=== PATIENT | male | born 1935 | race Caucasian/White ===

== ENCOUNTER 2017-02-23 19:44 | Emergency (ER) | payer MEDICARE, SELFPAY ==
[~2017-02-23] VITALS: Ht 175.3 cm; Wt 90.7 kg
[~2017-02-23 19:44] MED LIST changes: -CEPH500 PO; -CIPR500 PO; -FINA5 PO; -INSU100I6; -LIRA0.6P; -PIOG15; -Ultram50 MG PO
== END 2017-02-23 20:55 | disposition home or self-care (01) ==
LOC: ER 19:44
DX: T83.031A Leakage of indwelling urethral catheter, initial encounter (principal); I10 Essential (primary) hypertension; E11.9 Type 2 diabetes mellitus without complications; Z87.891 Personal history of nicotine dependence
CPT/HCPCS: 99282

== ENCOUNTER → 2017-02-23 | Outpatient (CLI) | payer MEDICARE, SELFPAY ==
[~2017-02-23] MED LIST: ALLO100 PO; AMLO10 PO; AMLO5 PO; Aspir-Low81 MG PO; CEPH500 PO; CIPR500 PO; CYCL10 PO; Cipro500 MG PO; DIPATR PO; DOCU100 PO; DOXA4 PO; FINA5 PO; FURO20 PO; FURO40 PO; Flomax0.4 MG PO; GLIM2 PO; GLYMET5 PO; Glucophage1000 MG PO; INSU100I6; INSUASPI SC; INSULANPEN SC; LEVEMIR FL100 UNIT/1 SC; LIRA0.6P; LISI20 PO; MECL25 PO; METF500 PO; METO100ER PO; METO50 PO; Novolog Fl100 UNIT/1 SC; ONDA4ODT MM; PIOG15; POTCHL20ER PO; Pravachol40 MG PO; Roxicodone5 MG PO; SPIR25 PO; Ultram50 MG PO; Zestril40 MG
[2017-02-23 16:23] LABS: Appearance, Urine Hazy (Clear); Bilirubin, Urine Neg (Neg); Blood, Urine 5+ (Neg); Color, Urine Yellow (P-Yellow); Glucose Qualitative, Urine 4+ (Neg); Ketones, Urine Neg (Neg); Leukocyte Esterase, Urine 3+ (Neg); Nitrite, Urine Neg (Neg); Protein, Urine 2+ (Neg); Urobilinogen, Urine NORM (Normal); pH, Urine 6.5 (5.0-8.0)
[2017-02-23 17:57] LABS: Bacteria Many /hpf; Red Blood Cells, Urine 25-50 /hpf (0-2); Squamous Epithelial Cells Rare /hpf (Few); White Blood Cells, Urine 25-50 /hpf (0-5)
[2017-02-23 17:58] LABS: Yeast/Fungi Urine Few /hpf
== END ==
LOC: LAB 14:50
PROVIDERS: Nurse Practitioner Family
DX: R31.9 Hematuria, unspecified (principal)
CPT/HCPCS: 81001; 87077; 87086; 87186

== ENCOUNTER → 2017-03-10 | Outpatient (CLI) | payer MEDICARE, SELFPAY ==
[~2017-03-10] MED LIST changes: +CEPH500 PO; +CIPR500 PO; +FINA5 PO; +INSU100I6; +LIRA0.6P; +PIOG15; +Ultram50 MG PO
[2017-03-10 16:34] LABS: Source, Urine Catheter
[2017-03-10 18:21] LABS: Bilirubin, Urine Neg (Neg); Blood, Urine 4+ (Neg); Glucose Qualitative, Urine Neg (Neg); Ketones, Urine Neg (Neg); Leukocyte Esterase, Urine 1+ (Neg); Nitrite, Urine Neg (Neg); Protein, Urine Neg (Neg); Specific Gravity, Urine 1.025 (1.003-1.022); Urobilinogen, Urine NORM (Normal)
[2017-03-10 18:37] LABS: Appearance, Urine Clear (Clear); Color, Urine Pale Yellow (P-Yellow)
[2017-03-10 18:38] LABS: Bacteria Mod /hpf; Red Blood Cells, Urine 0-2 /hpf (0-2); Squamous Epithelial Cells Not Seen /hpf (Few)
== END ==
LOC: LAB 16:32
PROVIDERS: Registered Nurse
DX: N39.0 Urinary tract infection, site not specified (principal); R31.9 Hematuria, unspecified
CPT/HCPCS: 81001; 87086

== ENCOUNTER 2017-03-18 02:59 | Emergency (ER) | payer MEDICARE, SELFPAY ==
[~2017-03-18] VITALS: Ht 175.3 cm; Wt 95.2 kg
[~2017-03-18 02:59] MED LIST changes: -CEPH500 PO; -CIPR500 PO; -FINA5 PO; -INSU100I6; -LIRA0.6P; -PIOG15; -Ultram50 MG PO
[2017-03-18 05:08] LABS: Source, Urine Catheter
[2017-03-18 05:10] LABS: Bilirubin, Urine Neg (Neg); Blood, Urine 2+ (Neg); Glucose Qualitative, Urine 4+ (Neg); Ketones, Urine 1+ (Neg); Leukocyte Esterase, Urine 3+ (Neg); Nitrite, Urine Neg (Neg); Protein, Urine 2+ (Neg); Urobilinogen, Urine NORM (Normal)
[2017-03-18 05:17] LABS: Color, Urine Yellow (P-Yellow)
[2017-03-18 05:18] LABS: Appearance, Urine Cloudy (Clear)
[2017-03-18 05:19] LABS: White Blood Cells, Urine TNTC /hpf (0-5)
[2017-03-18 05:21] LABS: Bacteria Not Seen /hpf; Squamous Epithelial Cells Not Seen /hpf (Few)
[2017-03-18] MEDS ORDERED: CIPR500 PO (06:34)
== END 2017-03-18 06:40 | disposition left against medical advice (07) ==
LOC: ER 02:59
PROVIDERS: Emergency Medicine
DX: R33.9 Retention of urine, unspecified (principal); N39.0 Urinary tract infection, site not specified; I10 Essential (primary) hypertension; E11.9 Type 2 diabetes mellitus without complications; Z88.0 Allergy status to penicillin; Z91.018 Allergy to other foods; Z79.84 Long term (current) use of oral hypoglycemic drugs; Z87.891 Personal history of nicotine dependence
CPT/HCPCS: 51702; 81001; 87086; 99283

== ENCOUNTER 2017-04-03 16:02 | Emergency (ER) | payer MEDICARE, SELFPAY ==
[~2017-04-03] VITALS: Ht 172.7 cm; Wt 91.0 kg
[~2017-04-03 16:02] MED LIST changes: +CIPR500 PO
== END 2017-04-03 16:45 | disposition home or self-care (01) ==
LOC: ER 16:02
DX: T83.031A Leakage of indwelling urethral catheter, initial encounter (principal); Z88.8 Allergy status to other drugs, medicaments and biological substances; Z88.0 Allergy status to penicillin; Z91.02 Food additives allergy status; Z79.899 Other long term (current) drug therapy; Z79.84 Long term (current) use of oral hypoglycemic drugs; Z79.2 Long term (current) use of antibiotics; I10 Essential (primary) hypertension; E11.9 Type 2 diabetes mellitus without complications; Z87.891 Personal history of nicotine dependence
CPT/HCPCS: 99282

== ENCOUNTER 2017-05-06 12:20 | Emergency (ER) | payer MEDICARE, SELFPAY ==
[~2017-05-06] VITALS: Ht 175.3 cm; Wt 95.2 kg
== END 2017-05-06 13:40 | disposition home or self-care (01) ==
LOC: ER 12:20
DX: Z43.6 Encounter for attention to other artificial openings of urinary tract (principal); I10 Essential (primary) hypertension; E11.9 Type 2 diabetes mellitus without complications; Z87.891 Personal history of nicotine dependence; Z88.0 Allergy status to penicillin; Z88.7 Allergy status to serum and vaccine; Z91.018 Allergy to other foods; Z79.84 Long term (current) use of oral hypoglycemic drugs; Z79.899 Other long term (current) drug therapy
CPT/HCPCS: 99282

== ENCOUNTER → 2017-08-01 | Outpatient (CLI) | payer MEDICARE ==
[~2017-08-01] MED LIST changes: +CEPH500 PO; +FINA5 PO; +INSU100I6; +LIRA0.6P; +PIOG15; +Ultram50 MG PO
== END ==
LOC: LAB 16:30 → LAB SHORT 16:30
DX: R10.11 Right upper quadrant pain (principal); N28.89 Other specified disorders of kidney and ureter
CPT/HCPCS: 87077; 87086; 87186

== ENCOUNTER 2017-08-04 14:43 | Emergency (ER) | payer MEDICARE ==
[~2017-08-04] VITALS: Ht 170.2 cm; Wt 108.9 kg
[~2017-08-04 14:43] MED LIST changes: -CEPH500 PO; -FINA5 PO; -INSU100I6; -LIRA0.6P; -PIOG15; -Ultram50 MG PO
[2017-08-04 15:32] LABS: BASOPHILS ABSOLUTE AUTO 0.04 K/mm3 (0.00-0.23); BASOPHILS PERCENT AUTO 1 % (0-2); EOSINOPHILS ABSOLUTE AUTO 0.15 K/mm3 (0.00-0.68); EOSINOPHILS PERCENT AUTO 2 % (0-6); Hematocrit 44.2 % (37.0-53.0); Hemoglobin 14.9 g/dL (13.5-17.5); IMMATURE GRAN ABSOLUTE AUTO 0.02 K/mm3 (0.00-0.10); IMMATURE GRAN PERCENT AUTO 0 % (0-1); LYMPHOCYTES ABSOLUTE AUTO 2.06 K/mm3 (0.84-5.20); LYMPHOCYTES PERCENT AUTO 29 % (21-46); MONOCYTES ABSOLUTE AUTO 0.43 K/mm3 (0.16-1.47); MONOCYTES PERCENT AUTO 6 % (4-13); Mean Corpuscular HGB 28.9 pg (26.0-34.0); Mean Corpuscular HGB Conc 33.7 g/dL (31.5-36.5); Mean Corpuscular Volume 86 fL (80-100); Mean Platelet Volume 9.3 fL (9.1-12.4); NEUTROPHILS ABSOLUTE AUTO 4.37 K/mm3 (1.96-9.15); NEUTROPHILS PERCENT AUTO 62 % (41-73); Platelet Count 196 K/mm3 (150-400); RDW Coefficient Variation 13.2 % (11.7-14.2); RDW Standard Deviation 41.1 fL (35.1-46.3); Red Blood Cell Count 5.15 M/mm3 (4.30-5.90); White Blood Cell Count 7.07 K/mm3 (4.00-11.30)
[2017-08-04 15:48] LABS: Alanine Aminotransfer (ALT/SGP 27 U/L (12-78); Albumin, Blood 3.7 g/dL (3.4-5.0); Albumin/Globulin Ratio 1.2 (0.8-1.8); Alk Phos 86 U/L (50-136); Anion Gap 7 mmol/L (6-16); Aspartate Aminotrans (AST/SGOT 25 U/L (12-37); Bilirubin, Total 0.8 mg/dL (0.1-1.0); Blood Urea Nitrogen 13 mg/dL (8-24); Bun/Creatinine Ratio 12.7 (12.0-20.0); CO2, Blood 29 mmol/L (21-32); Calcium, Blood 8.9 mg/dL (8.5-10.1); Chloride, Blood 105 mmol/L (98-108); Creatinine, Blood 1.02 mg/dL (0.60-1.20); Glomerular Filtration Rate >60 (60-); Glucose, Blood 212 mg/dL (70-99); Potassium, Blood 4.1 mmol/L (3.5-5.5); Sodium, Blood 141 mmol/L (136-145); Total Protein, Blood 6.7 g/dL (6.4-8.2)
[2017-08-04 17:22] LABS: Source, Urine Clean Catch
[2017-08-04 17:29] LABS: Appearance, Urine Clear (Clear); Bilirubin, Urine Neg (Neg); Blood, Urine Neg (Neg); Color, Urine Yellow (P-Yellow); Glucose Qualitative, Urine Neg (Neg); Ketones, Urine 1+ (Neg); Leukocyte Esterase, Urine 2+ (Neg); Nitrite, Urine Neg (Neg); Protein, Urine 3+ (Neg); Urobilinogen, Urine NORM (Normal)
[2017-08-04 17:37] LABS: Bacteria Few /hpf; Red Blood Cells, Urine 0-2 /hpf (0-2); Squamous Epithelial Cells Not Seen /hpf (Few)
[2017-08-04] MEDS ORDERED: PIOG15 (17:38)
[2017-08-04] MEDS ORDERED: LIRA0.6P (17:39)
[2017-08-04] MEDS ORDERED: INSU100I6 (17:39)
[2017-08-04] MEDS ORDERED: FINA5 PO (17:40)
[2017-08-04] MEDS ORDERED: CEPH500 PO (19:16)
[2017-08-04] MEDS ORDERED: Ultram50 MG PO (19:16)
== END 2017-08-04 19:28 | disposition home or self-care (01) ==
LOC: ER 14:43
PROVIDERS: Internal Medicine
DX: N30.90 Cystitis, unspecified without hematuria (principal); K44.9 Diaphragmatic hernia without obstruction or gangrene; I10 Essential (primary) hypertension; E11.9 Type 2 diabetes mellitus without complications; Z87.891 Personal history of nicotine dependence; Z88.0 Allergy status to penicillin; Z88.8 Allergy status to other drugs, medicaments and biological substances; Z91.02 Food additives allergy status; Z79.899 Other long term (current) drug therapy; Z79.84 Long term (current) use of oral hypoglycemic drugs; Z79.4 Long term (current) use of insulin
CPT/HCPCS: 36415; 74177; 80053; 81001; 83690; 85025; 87086; 99284; Q9967

== ENCOUNTER 2018-06-08 10:51 | Day surgery (SDC) | payer MEDICARE ==
[~2018-06-08] VITALS: Ht 172.7 cm; Wt 94.3 kg
[~2018-06-08 10:51] MED LIST changes: +CEPH500 PO; +FINA5 PO; +GLIP10ER PO; +INSU100I6; +LIRA0.6P SC; +METO50ER PO; +OXYB5ER PO; +PIOG15 PO; +Ultram50 MG PO
--- NOTE | 2018-06-08 11:52 | NUR ---
PT QUESTIONS OFTEN FOR EACH ACTION TAKEN. ORIGINALLY REFUSES TO ANSWER QUESTIONS TO RECONCILE MEDICAL HISTORY. ANSWERS PROVIDED ARE CONTINUOUS NEGATIVE RESPONSES, EVEN BEFORE QUESTION IS FULLY ENUNCIATED. PT EXHIBITS GROWING DISPLEASURE WITH QUESTIONS AND TONE OF VOICE BECOMES LOUDER AND AGGRESSIVE. REFUSES TO ANSWER FURTHER QUESTIONS. REMOVES BP CUFF FROM R ARM DURING BASELINE TESTING AFTER COMPLAINING IT HURT COMPLIANCE VARIES THROUGHOUT PREP TIME. JASEN WILLIAMSON RN IN ATTENDANCE.
--- NOTE | 2018-06-08 16:33 | NUR ---
PATIENT ARRIVED IN UNIT ROOM 14 AT 16:22 AFTER INTERVENTION FROM [facility] [place], BEDSIDE REPORT RECEIVED FROM JAMES CORREARN,[facility], HAS A MYNX CLOSURE ON RIGHT GROIN, PUNCTURE SITE SHOWS NO SIGNS OF BLEEDING, NO HEMATOMA NOTED, NO HARDNESS PALPATED, ANGIOSEAL ON L GROIN SHOWS NO SIGNS OF BLEEDING, SOFT ON PALPATION, NO HEMATOMA NOTED, PATIENT HAS MEJIA CATHETER IN PLACE, 14 FR COUDE, BLOODY URINE NOTED, PATIENT PLACED INTO SLIGHT REVERSE TRENDELENBURG AND ICE CHIPS GIVEN, NO PROBLEM SWALLOWING, DAUGHTER AT BEDSIDE, AWAITING DR. CONNOLLY TO SPEAK WITH DAUGHTER AND WRITE ORDERS, PATIENT WAS PLACED ON MONITOR AND BP'S SET TO EVERY 15 MINUTES, ORIENTED TO NEW ENVIRONMENT, AND ROOM, CALL LIGHT IN REACH AND EXPLAINED, WILL CONTINUE TO MONITOR.
--- NOTE | 2018-06-08 16:40 | NUR ---
POST PVI 14 FR COUDE CATHETER PLACED, MILD RESISTANCE DURING INSERTION. RED TINGED URINE DRAINING INTO MEJIA BAG WITH SMALL CLOTS. PT ALSO HAS BLEEDING FROM AROUND THE TUBE IN [place], PROVIDER INFORMED, PT WAS GIVEN PROTAMINE IVP. STAT LOCK SECURED TO PT LEFT THIGH. BAG DRAINING TO GRAVITY.
--- NOTE | 2018-06-08 17:46 | NUR ---
SHIFT SUMMARY NOTE: PATIENT ARRIVED TO ICU ROOM 14 VIA ICU BED AFTER INTERVENTION, BEDSIDE REPORT RECEIVED FROM OTONIEL CHANG RN, ASSUMED CARE, PATIENT ANGRY AND BRIEFLY COMBATIVE, TRYING TO HIT NURSES DURING ASSESSMENT OF BILATERAL GROIN SITES, BUT WAS REORIENTED, DAUGHTER AT BEDSIDE, RIGHT GROIN SITE COVERED WITH CHG TEGADERM, SITE INTACT, NO S/S OF BLEEDING, HEMATOMA, NONTENDER ON PALPATION, MYNX CLOSING DEVISE IN PLACE, LEFT GROIN SITE COVERED WITH CHG TEGADERM, PUNCTURE SITE SHOWS NO S/S OF BLEEDING, NO HEMATOMA, NONTENDER ON PALPATION, PATIENT IS AFEBRILE, DENIES PAIN AT THIS TIME, MEJIA CATHETER IN PLACE, URINE IS RED, D/T PATIENT ON BLOOD THINNERS AND TRAUMA ON INSERTION, MEJIA IS A 14 FR COUDE, PATIENT HAS HISTORY OF ENLARGED PROSTATE, LUNG SOUNDS CLEAR, NSR/ST, BLOOD PRESSURES BETWEEN 140'S TO 160'S, ON RA O2 SATURATION IN LOW TO MID 90'S, PLACED IN REVERSED TRENDELENBURG, ABLE TO SIP ON WATER AND ICE CHIPS, DR. CONNOLLY IN TO SEE PATIENT AND NOTIFY DAUGHTER OF FINDINGS, PULSES IN RIGHT LEG ARE PALPABLE, LEFT LEG DOPPLER USED, PATIENT C/0 COLD FEET, TWO WARM BLANKETS APPLIED, DIET ORDERED, HAD JELLO AND NO PROBLEM SWALLOWING, CALL LIGHT IN REACH, WILL CONTINUE TO MONITOR.
--- NOTE | 2018-06-08 20:43 | NUR ---
ASSUMED CARE PT IS ALERT AND ORIENTED CHATTING WITH DAUGHTER AND FRIEND. EXTREMETIES ARE WARM AND SHOW GOOD CAP REFILL. PULSES ARE +2. FEMORAL SITES ARE SOFT, NONTENDER, AND NO SIGNS OF BLEEDING.
[2018-06-08] MEDS ORDERED: LOSARTAN POTASS50 MG PO (20:53)
[2018-06-08] MEDS ORDERED: DOCU100 PO (20:54)
[2018-06-08] MEDS ORDERED: Flonase 0.05% N16 GM INH (20:57)
[2018-06-08] MEDS ORDERED: ALLERCLEAR10 MG PO (20:59)
--- NOTE | 2018-06-09 06:46 | NUR ---
SHIFT SUMMARY PT IS FULLY ALERT AND ORIENTED X 4. OVERNIGHT PT ATTEMPTED TO SELF AMBULATE TO CHAIR WITHOUT TELLING NURSES, BUT WAS NOTICED AND STOPPED; PT WAS DIAPHORETIC, AND HYPERTENSIVE SBP>215. AFTER SITTING DOWN AND RESTING BLOOD PRESSURE WENT DOWN SBP ~155 NEAR BASELINE AND WAS NO LONGER DIAPHORETIC.
--- NOTE | 2018-06-09 07:30 | NUR ---
ASSUMED CARE: RECEIVED REPORT FROM NOC RN. PT AWAKE AND WATCHING TV UPON ENTERING ROOM. ASSESSED GROIN SITES BOTH APPEAR TO BE SOFT, NONTENDER AND NOT SIGNS OF BLEEDING NOTED. PIN POINT BLOOD NOTED AT INSERTION SITE. PT A/O X 4 ASKING QUESTIONS OF WHEN BREAKFAST WILL ARIVE. ASSESSED FOLY NO BLEEDING NOTED AROUND INSERTION SITE. NO ACUTE DISTRESS NOTED. WILL ASSESS FURTHER AND CONTINUE TO MONITOR. CALL LIGHT WITHIN REACH.
--- NOTE | 2018-06-09 08:18 | NUR ---
UPDATE: PT UP TO TOILET WITH STAND BY ASSIST FOR CORD MANAGEMENT. DC'D MEJIA AT THIS TIME. MEDS GIVEN AND BLOOD SUGAR ASSESSED. PT REFUSES TO STATE NAME AND . REPORT OF PENIS "STINGING" AFTER REMOVAL. EDUCATED PT TO INFORM RN WHEN PT IS ABLE TO URINATE. EDUCATED PT TO CALL ONCE TOILETING IS COMPLETE AND NOT TO GET UP WITHOUT STAFF IN THE ROOM TO ASSIST TO PREVENT FALLING. WILL CONTINUE TO MONTIOR AND ASSESS FURHTER.
--- NOTE | 2018-06-09 08:30 | NUR ---
BLEEDING: SMALL AMOUNT OF BLEEDING NOTED AFTER REMOVAL OF MEJIA CATHETER. SOME DRIPPING NOTED FROM TOILET TO BED. PT PROVIDED GAUZE. WILL MONITOR BLEEDING.
--- NOTE | 2018-06-09 09:06 | NUR ---
DAUGHTER: PT DAUGHTER ARIVES TO THE UNIT GIVEN AN UPDATE TO WHEN PT WILL BE DC'D. PT STATES STILL BLEEDING AND REQUESTS MORE GAUZE. BLEEDING IS NOTED TO HAVE REDUCED. WILL CONTINUE TO MONITOR.
--- NOTE | 2018-06-09 09:20 | NUR ---
DISCHARGE: ORDERS RECEIVED FOR DISCHARG, PAPERS DONE AND AWAITING PT URINATION TO INSURE NO RETENTION SINCE DC OF MEJIA.
--- NOTE | 2018-06-09 10:00 | NUR ---
UPDATE: ASKED PT IF HE COULD ATEMPT TO URINATE, PT REFUSES. PT STATES IF HE DOESN'T URINATE IN THE NEXT HOUR HE IS GETTING DRESSED AND LEAVING. EDUCATED PT ON THE RISK OF RETENTION. PT STATES "GET THIS THING OUT OF ME" REFERING TO HIS IV. EDUCATE PT OF NEED TO KEEP IN UNTIL PT IS LEAVING OUT THE DOOR INCASE OF EMERGENCY. PT BEGINS PULLING ON TAPE TO REMOVE HIMSELF, BUT STOPS AFTER EDUCATION.
--- NOTE | 2018-06-09 10:35 | NUR ---
NO URINATION: PT HAS NOT URINATED OF YET, PT STATES IF HE DOES NOT URINATE BY 1200 HE IS LEAVING. EDUCATED PT ON RISKS OF LEAVING AND POSSIBLE RETENTION. PT STATES "I DON'T CARE". WILL DISCUSS WITH UTILITY WORKER ROLLER SHOP PRIOR TO DISCHARGE IF PT DOES NOT URINATE.
--- NOTE | 2018-06-09 11:02 | NUR ---
PAIN: PT STATES PAIN IN PENIS AND ACROSS LOW BLADDER AREA IS NOT ANY BETTER. PT STATES HE IS ABOUT TO THROW UP D/T PAIN AND REQUESTS SOMETHING MORE FOR PAIN. PT NOTIFED OF NEED TO CALL THE DR FOR SOMETHING DIFFERENT.
[2018-06-09] MEDS ORDERED: Pyridium200 MG PO (11:57)
--- NOTE | 2018-06-09 12:00 | NUR ---
DR CONNOLLY: FRONT END ALIGNMENT SPECIALIST WAS ABLE TO REACH DR CONNOLLY AND INFORMED HIM OF THE SITUATION. RECEIVED ORDERS FOR LIDOCANE AND PYRIDIUM. STILL WANTS TO DISCHARGE WITH OR WITHOUT URINATING. DR AWARE OF INCREASED BLOOD PRESSURE AND PVC'S.
--- NOTE | 2018-06-09 12:04 | NUR ---
PHARMACY: ORDER FOR PYRIDIUM PERSCRIPTION CALLED TO PHARMACY AT THIS TIME.
--- NOTE | 2018-06-09 12:43 | NUR ---
UPDATE AND DISCHARGE PAPERWORK: PT GIVEN MEDS FOR PAIN IN BLADDER AND PENIS. PT BP IS NOTED TO BE ELIVATED, TOOK MANUAL BP AND WAS 240/105. PT STATES PAIN IN BLADDER AREA IS BETTER, BUT PENIS IS STILL "UNCOMFORTABLE". DISCHARGE EDUCATION DONE PT STATES UNDERSTANDING. PT PULLED OFF TELE, AND REMOVED IV. DRESSED READY TO GO, PT ADVISED AND EDUCATED TO RELAX FOR A FEW TO ATEMPT TO REDUCE BLOOD PRESSURE. EDUCATED PT TO MONITOR BP. WILL CONTINUE TO MONITOR PT UNTIL HE LEAVES THE BUILDING.
--- NOTE | 2018-06-09 13:05 | NUR ---
DISCHARGE PT DEPARTED WITH SISTER VIA WHEELCHAIR AT 1302. MANUAL BP IMMEDIATELY PRIOR TO DEPARTURE 178/80.
[2018-06-13] MEDS ORDERED: Bactrim Ds Tab1 EACH PO (09:01)
[2018-06-13] MEDS ORDERED: Miralax17 GM PO (09:01)
== END 2018-06-09 13:02 | disposition home or self-care (01) ==
LOC: MHTC 10:51 → ICUW 16:17 → MHTC 22:47
DX: E11.51 Type 2 diabetes mellitus with diabetic peripheral angiopathy without gangrene (principal); I70.201 Unspecified atherosclerosis of native arteries of extremities, right leg; I10 Essential (primary) hypertension; E78.5 Hyperlipidemia, unspecified; M10.9 Gout, unspecified; Z87.891 Personal history of nicotine dependence; Z88.0 Allergy status to penicillin; Z88.8 Allergy status to other drugs, medicaments and biological substances; Z91.018 Allergy to other foods; Z79.899 Other long term (current) drug therapy; Z79.4 Long term (current) use of insulin
CPT/HCPCS: 37224; 37229; 37232; 75625; 75710; 75716; 82947; 99152; 99153; C1725; C1760; C1769; C1885; C1887; C1894; C2623; J0360; J1644; J2250; J2720; J3010; J7030; Q9967

== ENCOUNTER 2019-01-16 09:47 | Observation (INO) | payer MEDICARE ==
[~2019-01-16] VITALS: Ht 172.7 cm; Wt 94.2 kg
[~2019-01-16 09:47] MED LIST changes: +ALLERCLEAR10 MG PO; +Bactrim Ds Tab1 EACH PO; +Flonase 0.05% N16 GM; +Flonase 0.05% N16 GM INH; +LACT10SY PO; +LOSA50 PO; +LOSARTAN POTASS50 MG PO; +Loratadine10 MG PO; +MIRALAX17 GM PO; +Miralax17 GM PO; +Pyridium200 MG PO
--- NOTE | 2019-01-16 17:05 | NUR ---
ARRIVED FROM MANAGER PET AT 1655. R DP AND PT PULSES FAINT BUT PALPABLE. INSTRUCTED PATIENT TO KEEP LLE ABSOLUTELY STILL AND FLAT FOR 3 HOURS, KEEP OXYGEN AND O2 SAT PROBE ON, AND TO USE CALL LIGHT IF HE NEEDED ANYTHING; HE REQUIRED MUCH REINFORCEMENT AND REDIRECTION. L GROIN SITE WITHOUT BLEEDING OR HEMATOMA WITH DRIED BLOOD DOWN NEAR SCROTUM. DENIES PAIN, N/V AT THIS TIME. SIDE RAILS UP X 3, BED ALARM ON.
--- NOTE | 2019-01-16 18:50 | NUR ---
PER PATIENT REQUEST, CALLED HIS DAUGHTER DORA, TRANSFERRED PHONE CALL TO PT ROOM.
--- NOTE | 2019-01-16 21:00 | NUR ---
ASSUMED CARE OF PT @1900, REPORT RCV'D FROM SHELBY DOSHI. PT TO BE DISCHARGED AT 1999 EXTENDED RECOVERY FOLLOWING INTERVENTIONAL RIGHT LEG ANGIOGRAM. PT ALERT AND ORIENTED TO SELF, SITUATION, DATE/YEAR. PT APPEARED AGITATED BUT REDIRECTABLE. PER DAYSHIFT NURSE PT'S FRIEND "GRACE" TO PICK PATIENT UP AND STAY WITH PATIENT OVERNIGHT. 1999: AT PRECISELY 1999 PT CALLED NURSE INTO ROOM INSISTING THAT HE WAS READY TO GET UP, GET DRESSED AND LEAVE. INFORMED PT THAT WE WERE PRINTING HIS DISCHARGE ORDERS/INFORMATION AND WAITING FOR HIS TRANSPORTATION TO ARRIVE AND THEN WE WOULD BE ABLE TO GET HIM OUT OF BED. PT BECAME INCREASINGLY AGITATED, CURSING AT STAFF, PULLING LINES/CORDS OFF, AND ATTEMPTING TO GET OUT OF BED. PT REMINDED THAT HE HAD JUST UNDERGONE AN PROCEDURE AND THAT HE NEEDED ASSISTANCE TO SAFELY AMBULATE. PT BEGAN SWINGING AND KICKING AT STAFF AND THEN QUICKLY BECAME DYSPNEIC, INCREASED OXYGEN NEEDS, AND HAD AUDITORY WHEEZES T/O. ATTEMPTED UNSUCCESSFULLY DR. CONNOLLY ON 4 OCCASIONS HE WAS INTERVENTIONAL DR, CALLED NURSING MATHEMATICAL PHYSICIST, AND THEN CONTACTED HOSPITALIST TO COME AND ASSESS AND POSSIBLY ADMIT PT. HOSPITALIST DEMETRI TO SEE PT, ADMITTED TO ICU OBS PATIENT FOR ACUTE RESPIRATORY FAILURE WITH HYPOXIA. PT RECOGNIZES NEED TO BE ADMITTED AND IS CURRENTLY COOPERATIVE WITH CARE STATING "I DON'T FEEL GOOD". PT REQUIRING 13-15L OXYMIZER TO MAINTAIN O2 SATS>90%. PT REFUSES TO WEAR PRESCRIBED CPAP. ORDER FOR LASIX AND INSERTION OF MEJIA, STAT CHEST XRAY AND EKG. PT'S FRIEND "GRACE" AT BEDSIDE, REPORTS PT IS "CONFUSED" AT BASELINE BUT THAT HE IS "NEVER COMBATIVE", FRIEND REPORTS CONCERN REGARDING PT RETURNING HOME PT HAS "60 STEEP STAIRS THAT HE HAS TO CLIMB TO GET HOME". WILL PUT IN SOCIAL SERVICE CONSULT. LEFT FEMORAL ACCESS SITE SOFT/NONTENDER, NO EVIDENCE OF BLEEDING, NO HEMATOMA. 2+ PITTING EDEMA BILATERAL LOWER EXTREMETIES, DOPPLER PULSES BLE. SEE FULL ADMISSION ASSESSMENT.
[2019-01-16 21:27] LABS: BASOPHILS ABSOLUTE AUTO 0.04 K/mm3 (0.00-0.23); BASOPHILS PERCENT AUTO 0 % (0-2); EOSINOPHILS ABSOLUTE AUTO 0.22 K/mm3 (0.00-0.68); EOSINOPHILS PERCENT AUTO 2 % (0-6); Hematocrit 47.3 % (37.0-53.0); IMMATURE GRAN ABSOLUTE AUTO 0.02 K/mm3 (0.00-0.10); IMMATURE GRAN PERCENT AUTO 0 % (0-1); LYMPHOCYTES ABSOLUTE AUTO 1.59 K/mm3 (0.84-5.20); LYMPHOCYTES PERCENT AUTO 15 % (21-46); MONOCYTES ABSOLUTE AUTO 0.68 K/mm3 (0.16-1.47); MONOCYTES PERCENT AUTO 7 % (4-13); Mean Corpuscular HGB 29.7 pg (26.0-34.0); Mean Corpuscular HGB Conc 31.7 g/dL (31.5-36.5); Mean Corpuscular Volume 94 fL (80-100); Mean Platelet Volume 9.6 fL (9.1-12.4); NEUTROPHILS ABSOLUTE AUTO 7.83 K/mm3 (1.96-9.15); NEUTROPHILS PERCENT AUTO 75 % (41-73); Platelet Count 188 K/mm3 (150-400); RDW Standard Deviation 48.1 fL (35.1-46.3); Red Blood Cell Count 5.05 M/mm3 (4.30-5.90); White Blood Cell Count 10.38 K/mm3 (4.00-11.30)
[2019-01-16 21:37] LABS: Source, Urine Catheter
[2019-01-16 21:44] LABS: Appearance, Urine Hazy (Clear); Bilirubin, Urine Neg (Neg); Blood, Urine 5+ (Neg); Color, Urine Amber (P-Yellow); Glucose Qualitative, Urine 1+ (Neg); Ketones, Urine 1+ (Neg); Leukocyte Esterase, Urine 1+ (Neg); Nitrite, Urine Neg (Neg); Protein, Urine 4+ (Neg); Urobilinogen, Urine NORM (Normal); pH, Urine 6.5 (5.0-8.0)
[2019-01-16 21:50] LABS: Red Blood Cells, Urine TNTC /hpf (0-2)
[2019-01-16 21:51] LABS: Bacteria Mod /hpf; Squamous Epithelial Cells Few /hpf (Few)
[2019-01-16 21:54] LABS: Alanine Aminotransfer (ALT/SGP 34 U/L (12-78); Albumin, Blood 3.6 g/dL (3.4-5.0); Albumin/Globulin Ratio 1.2 (0.8-1.8); Alk Phos 129 U/L (50-136); Anion Gap 8 mmol/L (6-16); Aspartate Aminotrans (AST/SGOT 22 U/L (12-37); Bilirubin, Total 1.3 mg/dL (0.1-1.0); Blood Urea Nitrogen 21 mg/dL (8-24); Bun/Creatinine Ratio 19.1 (12.0-20.0); CO2, Blood 25 mmol/L (21-32); Calcium, Blood 8.6 mg/dL (8.5-10.1); Chloride, Blood 110 mmol/L (98-108); Glomerular Filtration Rate >60 (60-); Glucose, Blood 205 mg/dL (70-99); Magnesium, Blood 1.9 mg/dL (1.6-2.4); Potassium, Blood 3.9 mmol/L (3.5-5.5); Sodium, Blood 143 mmol/L (136-145); Total Protein, Blood 6.6 g/dL (6.4-8.2); Troponin I <0.015 ng/mL (0.000-0.040)
--- NOTE | 2019-01-17 06:29 | NUR ---
SHIFT SUMMARY PT STABLE OVERNIGHT, ABLE TO REST WELL AND WAS COOPERATIVE WITH CARE. THIS MORNING PT IS BEGINNING TO BECOME MORE AGITATED AND IS REQUESTING TO GO HOME, REQUESTING "HOT TEA" (HE IS NPO) AND IS REFUSING TO WEAR OXYGEN. CURRENT SATS ARE 89-90% ON ROOM AIR. OVERNIGHT PT'S SATS REMAINED IN MID 90'S ON 10L NRB. PT HYPERTENSIVE ON OCCASION, TREATED PER EMAR. 2250 ML URINARY OUTPUT. RIGHT GROIN ACCESS SITE REMAINS UNCHANGED. WILL REPORT TO DAYSHIFT NURSE.
--- NOTE | 2019-01-17 08:00 | NUR ---
INITIAL ASSESMENT PT ALERT AND ORIENT TIMES, ABRASIVE AND VERBALLY ABUSIVE. VSS, HYPERTENSIVE WITH AM HTN RX GIVEN. PAPL PULSES WITH WEAK BILAT LE PULSES. SURGICAL SITE CDI. TRACE EDEMA. 2L NC WITH WEAN TO RA. CLAER AND DIM BILAT. WILL ADVANCE DIET PER MD ORDER. ABD ROUND SOFT AND NON TENDER BT PRESENT NO BM. UO DARK CARLOS AND CLEAR. WILL D/C HOME PER MD ORDER
[2019-01-17] MEDS ORDERED: CLOP75 PO (09:38)
--- NOTE | 2019-01-17 11:15 | NUR ---
DISCHARGE PT D/C HOME PER MD ORDER WITH FRIEND VIA W/C TO PERSONAL AUTOMOBILE. ALL BELONGINGS RETURNED TO PT AND ACCOUNTED FOR. ALL D/C INSTRUCTIONS COMPLETE AND GIVEN TO PT. ALL LINES AND TUBES D/C WNL.
== END 2019-01-17 11:17 | disposition home or self-care (01) ==
LOC: MHTC 09:47 → ICUW 16:29 → MHTC 16:29 → ICUW 21:03 → MHTC 01-30 10:00
PROVIDERS: Nurse Practitioner Acute Care; ADMIT Surgery
PROC: 047P3ZZ Dilation of Right Anterior Tibial Artery, Percutaneous Approach (ICD-10-PCS; principal; 2019-01-16)
DX: E11.51 Type 2 diabetes mellitus with diabetic peripheral angiopathy without gangrene (principal); J96.01 Acute respiratory failure with hypoxia; J81.1 Chronic pulmonary edema; I25.10 Atherosclerotic heart disease of native coronary artery without angina pectoris; K59.09 Other constipation; F03.91 Unspecified dementia, unspecified severity, with behavioral disturbance; I10 Essential (primary) hypertension; E78.5 Hyperlipidemia, unspecified; H35.30 Unspecified macular degeneration; M10.9 Gout, unspecified; N40.1 Benign prostatic hyperplasia with lower urinary tract symptoms; R33.8 Other retention of urine; N39.498 Other specified urinary incontinence; E11.42 Type 2 diabetes mellitus with diabetic polyneuropathy; E66.9 Obesity, unspecified; Z66 Do not resuscitate; Z88.0 Allergy status to penicillin; Z88.7 Allergy status to serum and vaccine; Z88.8 Allergy status to other drugs, medicaments and biological substances; Z91.018 Allergy to other foods; Z79.84 Long term (current) use of oral hypoglycemic drugs; Z79.1 Long term (current) use of non-steroidal anti-inflammatories (NSAID); Z79.899 Other long term (current) drug therapy; Z87.891 Personal history of nicotine dependence
CPT/HCPCS: 36415; 37230; 37232; 51702; 71045; 75716; 75774; 80053; 81001; 82947; 83735; 83880; 84484; 85025; 85347; 93005; 93010; 94660; 99152; 99153; C1725; C1760; C1769; C1874; C1887; C1894; J0360; J1644; J1940; J2250; J3010; J3480; J7030; J7050; Q9967

== ENCOUNTER 2019-01-26 05:42 | Emergency (ER) | payer MEDICARE, OTHER ==
[~2019-01-26] VITALS: Ht 177.8 cm; Wt 117.9 kg
[~2019-01-26 05:42] MED LIST changes: +CLOP75 PO
[2019-01-26] MEDS ORDERED: POTASSIUM CHLO20 ME1 PO (06:22)
[2019-01-26] MEDS ORDERED: PIOGLITAZONE HC30 MG PO (06:22)
[2019-01-26] MEDS ORDERED: PLAVIX75 MG PO (06:22)
[2019-01-26] MEDS ORDERED: Lopressor 50 mg50 MG GT (06:22)
[2019-01-26] MEDS ORDERED: Metformin HCl1000 MG PO (06:22)
[2019-01-26] MEDS ORDERED: Constulose10 GM/15 M PO (06:22)
[2019-01-26] MEDS ORDERED: FUROSEMIDE40 MG PO (06:23)
[2019-01-26 09:55] LABS: Calcium, Ionized (POC) 1.19 mmol/L (1.10-1.46); Chloride (POC) 108 mmol/L (98-108); Creatinine (POC) 1.2 mg/dL (0.8-1.3); Glucose (ISTAT POC) 180 mg/dL (70-99); Hemoglobin (POC) 13.9 g/dL (13.5-17.5); Sodium (POC) 141 mmol/L (135-148); Total CO2 (POC) 23 mmol/L (21-32)
[2019-01-26 09:58] LABS: BASOPHILS ABSOLUTE AUTO 0.05 K/mm3 (0.00-0.23); BASOPHILS PERCENT AUTO 1 % (0-2); EOSINOPHILS ABSOLUTE AUTO 0.06 K/mm3 (0.00-0.68); EOSINOPHILS PERCENT AUTO 1 % (0-6); Hematocrit 41.4 % (37.0-53.0); Hemoglobin 13.4 g/dL (13.5-17.5); IMMATURE GRAN ABSOLUTE AUTO 0.08 K/mm3 (0.00-0.10); IMMATURE GRAN PERCENT AUTO 1 % (0-1); LYMPHOCYTES ABSOLUTE AUTO 1.24 K/mm3 (0.84-5.20); LYMPHOCYTES PERCENT AUTO 13 % (21-46); MONOCYTES ABSOLUTE AUTO 0.61 K/mm3 (0.16-1.47); MONOCYTES PERCENT AUTO 6 % (4-13); Mean Corpuscular HGB 29.7 pg (26.0-34.0); Mean Corpuscular HGB Conc 32.4 g/dL (31.5-36.5); Mean Corpuscular Volume 92 fL (80-100); Mean Platelet Volume 9.2 fL (9.1-12.4); NEUTROPHILS ABSOLUTE AUTO 7.81 K/mm3 (1.96-9.15); NEUTROPHILS PERCENT AUTO 79 % (41-73); Platelet Count 233 K/mm3 (150-400); RDW Coefficient Variation 13.6 % (11.7-14.2); RDW Standard Deviation 46.6 fL (35.1-46.3); Red Blood Cell Count 4.51 M/mm3 (4.30-5.90); White Blood Cell Count 9.85 K/mm3 (4.00-11.30)
[2019-01-26 10:22] LABS: Anion Gap 5 mmol/L (6-16); Blood Urea Nitrogen 22 mg/dL (8-24); Bun/Creatinine Ratio 18.5 (12.0-20.0); CO2, Blood 24 mmol/L (21-32); Chloride, Blood 112 mmol/L (98-108); Creatinine, Blood 1.19 mg/dL (0.60-1.20); Glomerular Filtration Rate >60 (60-); Glucose, Blood 181 mg/dL (70-99); Sodium, Blood 141 mmol/L (136-145)
== END 2019-01-26 09:48 | disposition home or self-care (01) ==
LOC: ER 05:42
PROVIDERS: Emergency Medicine
DX: R33.9 Retention of urine, unspecified (principal); E11.9 Type 2 diabetes mellitus without complications; I10 Essential (primary) hypertension; Z88.2 Allergy status to sulfonamides; Z88.7 Allergy status to serum and vaccine; Z88.8 Allergy status to other drugs, medicaments and biological substances; Z91.018 Allergy to other foods; Z79.84 Long term (current) use of oral hypoglycemic drugs; Z79.899 Other long term (current) drug therapy
CPT/HCPCS: 36415; 51702; 51798; 80047; 80048; 85014; 85025; 99284-25

== ENCOUNTER 2019-02-03 03:33 | Inpatient (IN) | payer MEDICARE, OTHER ==
[~2019-02-03] VITALS: Ht 177.8 cm; Wt 97.4 kg
[~2019-02-03 03:33] MED LIST changes: +Constulose10 GM/15 M PO; +FUROSEMIDE40 MG PO; +Lopressor 50 mg50 MG GT; +Metformin HCl1000 MG PO; +PIOGLITAZONE HC30 MG PO; +PLAVIX75 MG PO; +POTASSIUM CHLO20 ME1 PO
[2019-02-03] MEDS ORDERED: DOCU100 PO (04:06)
[2019-02-03 04:10] LABS: PCO2 Arterial 48.6 mmHg (35-45); PO2 Arterial 210 mmHg (80-100); pH Blood Arterial 7.29 (7.35-7.45)
[2019-02-03 04:12] LABS: BASOPHILS ABSOLUTE AUTO 0.09 K/mm3 (0.00-0.23); BASOPHILS PERCENT AUTO 1 % (0-2); EOSINOPHILS ABSOLUTE AUTO 0.27 K/mm3 (0.00-0.68); EOSINOPHILS PERCENT AUTO 2 % (0-6); Hematocrit 46.4 % (37.0-53.0); Hemoglobin 14.7 g/dL (13.5-17.5); IMMATURE GRAN ABSOLUTE AUTO 0.15 K/mm3 (0.00-0.10); IMMATURE GRAN PERCENT AUTO 1 % (0-1); LYMPHOCYTES ABSOLUTE AUTO 3.23 K/mm3 (0.84-5.20); LYMPHOCYTES PERCENT AUTO 28 % (21-46); MONOCYTES ABSOLUTE AUTO 0.72 K/mm3 (0.16-1.47); MONOCYTES PERCENT AUTO 6 % (4-13); Mean Corpuscular HGB 29.8 pg (26.0-34.0); Mean Corpuscular HGB Conc 31.7 g/dL (31.5-36.5); Mean Corpuscular Volume 94 fL (80-100); Mean Platelet Volume 9.2 fL (9.1-12.4); NEUTROPHILS ABSOLUTE AUTO 6.99 K/mm3 (1.96-9.15); NEUTROPHILS PERCENT AUTO 61 % (41-73); Platelet Count 316 K/mm3 (150-400); RDW Coefficient Variation 13.9 % (11.7-14.2); RDW Standard Deviation 47.8 fL (35.1-46.3); Red Blood Cell Count 4.94 M/mm3 (4.30-5.90); White Blood Cell Count 11.45 K/mm3 (4.00-11.30)
[2019-02-03 04:33] LABS: Alanine Aminotransfer (ALT/SGP 33 U/L (12-78); Albumin, Blood 3.6 g/dL (3.4-5.0); Alk Phos 177 U/L (50-136); Anion Gap 7 mmol/L (6-16); Aspartate Aminotrans (AST/SGOT 31 U/L (12-37); Bilirubin, Total 0.5 mg/dL (0.1-1.0); Blood Urea Nitrogen 23 mg/dL (8-24); Bun/Creatinine Ratio 21.9 (12.0-20.0); CO2, Blood 26 mmol/L (21-32); Calcium, Blood 8.8 mg/dL (8.5-10.1); Chloride, Blood 110 mmol/L (98-108); Creatinine, Blood 1.05 mg/dL (0.60-1.20); Globulin, Blood 3.7 g/dL (2.2-4.0); Glomerular Filtration Rate >60 (60-); Glucose, Blood 190 mg/dL (70-99); Magnesium, Blood 1.8 mg/dL (1.6-2.4); Potassium, Blood 3.9 mmol/L (3.5-5.5); Sodium, Blood 143 mmol/L (136-145); Total Protein, Blood 7.3 g/dL (6.4-8.2); Troponin I <0.015 ng/mL (0.000-0.040)
--- NOTE | 2019-02-03 08:47 | NUR ---
Telephone report received from ED RN at this time. Anticipate arrival of pt to PCU 5 shortly.
--- NOTE | 2019-02-03 09:29 | NUR ---
Pt arrived to PCU 5; per Thelma Ellis, the pt is in sinus tachycardia, 105 bpm by telemetry monitoring. He is off the bipap now, having arrived on the bipap but taken off upon arrival by the respiratory therapist accompanying him. He is presently wearing oxgyen at 3 l/min and spo2 is 91%. Respiratory rate is about 28-30 / minute. HOB elevated at30 degrees. Pt is alert, conversant, cooperative, and complaining of a dry mouth. Speech therapist is here with the pt for an evaluation.
[2019-02-03] MEDS ORDERED: FURO40 PO (09:43)
[2019-02-03] MEDS ORDERED: NAPR220 PO (09:45)
--- NOTE | 2019-02-03 10:46 | NUR ---
The pt was given honey-thick black tea by spoon, and he refused any more, stating that it tastes "like crap". He insists on regular thin liquids. However, I explained that per the recent speech therapy evaluation, he is not safely swallowing thin liquids; they are making him cough. he states that he is going to have a thing or two to say to the speech therapist when she returns.
--- NOTE | 2019-02-03 12:01 | NUR ---
pt was taken down for ct scan at this time.
--- NOTE | 2019-02-03 12:48 | NUR ---
echocardiogram complete
[2019-02-03 13:08] LABS: Adenovirus Not Detected (NOT DETECT); Bordetella pertussis Not Detected (NOT DETECT); Chlamydophila pneumoniae Not Detected (NOT DETECT); Coronavirus 229E Not Detected (NOT DETECT); Coronavirus HKU1 Not Detected (NOT DETECT); Coronavirus NL63 Not Detected (NOT DETECT); Coronavirus OC43 Not Detected (NOT DETECT); Human Metapneumovirus Not Detected (NOT DETECT); Human Rhinovirus/Enterovirus Not Detected (NOT DETECT); Influenza A Not Detected (NOT DETECT); Influenza A/2009-H1 Not Detected (NOT DETECT); Influenza A/H1 Not Detected (NOT DETECT); Influenza A/H3 Not Detected (NOT DETECT); Influenza B Not Detected (NOT DETECT); Mycoplasma pneumoniae Not Detected (NOT DETECT); Parainfluenza Virus 1 Not Detected (NOT DETECT); Parainfluenza Virus 2 Not Detected (NOT DETECT); Parainfluenza Virus 3 Not Detected (NOT DETECT); Parainfluenza Virus 4 Not Detected (NOT DETECT); Respiratory Syncytial Virus Not Detected (NOT DETECT)
--- NOTE | 2019-02-03 13:16 | NUR ---
Spoke with daughters Mady and Farzana on the phone, updated on pt condition. The pt is still very upset that he cannot have a cuppa tea. Have explained to the pt that it is a concern for his safety as he is coughing whenever he takes thin liquids, but he doesn't seem to share our concern.
--- NOTE | 2019-02-03 18:44 | NUR ---
Pt arrived from ED on Bipap, but did not use it once here in PCU. He has been on oxygen via Nasal cannula at 3-4 l/min and maintaining spo2 greater than 90%. With activity, he becomes very short of breath. At rest, he is tachypneic but not dyspneic. He states he is feeling much better than this morning. He has been up to the chair for his meals, and eating with good appetite, but is not drinking very much fluid as he strongly dislikes the thickened liquids and has been refusing them for the most part. He has been voiding frequently, both incontinently and continently. Large amount of urine output. No futher coughing noted. He is weak, requires moderate to minimal assistance with activity. No c/o pain.
[2019-02-04 04:10] LABS: Hematocrit 39.3 % (37.0-53.0); Hemoglobin 12.6 g/dL (13.5-17.5); Mean Corpuscular HGB 29.6 pg (26.0-34.0); Mean Corpuscular HGB Conc 32.1 g/dL (31.5-36.5); Mean Corpuscular Volume 92 fL (80-100); Mean Platelet Volume 9.5 fL (9.1-12.4); Platelet Count 311 K/mm3 (150-400); RDW Coefficient Variation 13.9 % (11.7-14.2); RDW Standard Deviation 47.2 fL (35.1-46.3); Red Blood Cell Count 4.26 M/mm3 (4.30-5.90); White Blood Cell Count 17.22 K/mm3 (4.00-11.30)
[2019-02-04 04:38] LABS: Albumin, Blood 3.2 g/dL (3.4-5.0); Bilirubin, Total 0.5 mg/dL (0.1-1.0); Bun/Creatinine Ratio 22.9 (12.0-20.0); Calcium, Blood 8.8 mg/dL (8.5-10.1); Creatinine, Blood 1.31 mg/dL (0.60-1.20); Globulin, Blood 3.1 g/dL (2.2-4.0); Potassium, Blood 4.5 mmol/L (3.5-5.5); Total Protein, Blood 6.3 g/dL (6.4-8.2)
--- NOTE | 2019-02-04 07:32 | NUR ---
SHIFT SUMMARY ASSUMED CARE OF PATIENT AT 1900 WITH REPORT FROM HARMAN RN, PT AWAKE & ALERT SITTING SIDE OF BED IN NO OBVIOUS NOR REPORTED DISTRESS, PLEASANTLY CONVERSIVE. PATIENT ASYMPTOMATIC TO BLOOD PRESSURE ELEVATED AT OR NEAR 174/90 THROUGHOUT SHIFT, UNRESPONSIVE TO PRN HYDRALAZINE. ALL OTHER VSS AND WNL T/O SHIFT EXCEPT 332 WHEN PATIENT OBJECTED TO BEING AWOKEN AND REFUSED LAB DRAW, AT WHICH TIME PULSE AND RESP'S WERE ELEVATED ABOVE NORMAL LIMITS. IMMEDIATELY FOLLOWING COMMUNITY MARKETING MANAGER AND EDUCATION BY UNIT RNS, PATIENT ACCEPTED LAB DRAW AN VITALS CHECK AND WAS COMPLIANT WITH ALL OTHER INTERVENTIONS. PATIENT WAS MEDICATED AND TREATED PER MD ORDER, AND WAS SITTING AT SIDE OF BED WHEN REPORT AND CARE WERE GIVEN TO ONCOMING SHIFT AT 0700. BED LOCKED AND LOW, CALL LIGHT W/IN REACH
--- NOTE | 2019-02-04 17:50 | NUR ---
SHIFT SUMMARY THIS MORNING PT HAD VOICED THAT HE WAS UNHAPPY WITH THE THINKEN LIQUIDS TO DR BURDEN. IN CONVERSATION WITH THE PATIENT AND THE DOCTOR, IT WAS DECIDED THAT WE WILL FOLLOW THE PT'S WISHES TO RESUME THIN LIQUIDS. LUNG SOUNDS REMAIN DIM IN THE BASES. OYXGEN WAS TITRATED DOWN TO 2L NC FROM 3L. ATTEMPTED 1L, HOWEVER PT NO LONGER MAINTAINED HIS O2 SATS AND WAS INCREASED BACK TO 2L NC. 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 PT HAS REMAINED HYPERTENSIVE SBP 160'S AND WAS MEDICATED WITH PRN HYDRALAZINE. URINARY OUTPUT HAS BEEN APPROPRIATE AFTER IV LASIX. PT NEEDED A NAP DURING THE AFTERNOON, REPORTING THAT HE DIDN'T SLEEP WELL DURING THE NIGHT. PT WAS UP IN CHAIR FOR DINNER AND DECLINED ANY FURTHER NEEDS.
[2019-02-05 04:11] LABS: BASOPHILS ABSOLUTE AUTO 0.05 K/mm3 (0.00-0.23); BASOPHILS PERCENT AUTO 0 % (0-2); EOSINOPHILS ABSOLUTE AUTO 0.14 K/mm3 (0.00-0.68); EOSINOPHILS PERCENT AUTO 1 % (0-6); Hematocrit 39.9 % (37.0-53.0); Hemoglobin 12.5 g/dL (13.5-17.5); IMMATURE GRAN ABSOLUTE AUTO 0.09 K/mm3 (0.00-0.10); IMMATURE GRAN PERCENT AUTO 1 % (0-1); LYMPHOCYTES ABSOLUTE AUTO 2.71 K/mm3 (0.84-5.20); LYMPHOCYTES PERCENT AUTO 20 % (21-46); MONOCYTES ABSOLUTE AUTO 0.86 K/mm3 (0.16-1.47); MONOCYTES PERCENT AUTO 6 % (4-13); Mean Corpuscular HGB Conc 31.3 g/dL (31.5-36.5); Mean Corpuscular Volume 93 fL (80-100); Mean Platelet Volume 9.3 fL (9.1-12.4); NEUTROPHILS ABSOLUTE AUTO 9.67 K/mm3 (1.96-9.15); NEUTROPHILS PERCENT AUTO 72 % (41-73); Platelet Count 298 K/mm3 (150-400); RDW Coefficient Variation 13.8 % (11.7-14.2); RDW Standard Deviation 47.6 fL (35.1-46.3); Red Blood Cell Count 4.31 M/mm3 (4.30-5.90); White Blood Cell Count 13.52 K/mm3 (4.00-11.30)
[2019-02-05 04:34] LABS: Albumin/Globulin Ratio 1.1 (0.8-1.8); Bilirubin, Total 0.6 mg/dL (0.1-1.0); Bun/Creatinine Ratio 27.9 (12.0-20.0); Calcium, Blood 8.8 mg/dL (8.5-10.1); Creatinine, Blood 1.36 mg/dL (0.60-1.20); Globulin, Blood 2.8 g/dL (2.2-4.0); Potassium, Blood 3.8 mmol/L (3.5-5.5); Total Protein, Blood 5.8 g/dL (6.4-8.2)
--- NOTE | 2019-02-05 06:26 | NUR ---
SHIFT SUMMRY PATIENT PLEASENT AND COOPERATIVE LAST NIGHT. PATIENT APPEARED TO ENJOY TALING WITH STAFF LAST NIGHT. PATIENT UP IN CHAIR FOR SEVERAL HOURS BEFORE MOVING TO THE BED FOR THE NIGHT. PATIENT APPAERED TO SLEEP WELL THROUGHOUT THE NIGHT WITH NO COMPLAINTS OF PAIN OR DISCOMFORT. PRN HYDRALAZINE GIVEN PER EMAR. VITAL SIGNS CHARTED. PATIENT CURRENTLY APPEARS TO BE ASLEEP. WILL COTNINUE TO MONITOR PATIENT AND REPORT TO ONCOMING RN.
--- NOTE | 2019-02-05 17:28 | NUR ---
RECIEVED REPORT FROM DELFINA EYE DROPPER ASSEMBLER, AT [id number]. PATIENT TO TRANSFER TO ROOM 332
--- NOTE | 2019-02-06 05:42 | NUR ---
SHIFT SUMMARY- PT. A&O, FORGETFUL AT TIMES. SBA TO BATHROOM, ON 2L OF O2. PT. DENIED PM MEDS DUE TO UPSET STOMACH, HAD NO C/O PAIN OR DISCOMFORT. SLEPT ON/OFF DURING THE NIGHT, NO APPARENT DISTRESS NOTED. NO ACUTE CHANGES TO CONDITION. CALL LIGHT WITHIN REACH AND SIDE RAILS UP X2. WILL CONT TO MONITOR.
[2019-02-06 07:55] LABS: BASOPHILS ABSOLUTE AUTO 0.04 K/mm3 (0.00-0.23); BASOPHILS PERCENT AUTO 0 % (0-2); EOSINOPHILS ABSOLUTE AUTO 0.18 K/mm3 (0.00-0.68); EOSINOPHILS PERCENT AUTO 2 % (0-6); Hematocrit 41.3 % (37.0-53.0); Hemoglobin 12.9 g/dL (13.5-17.5); IMMATURE GRAN ABSOLUTE AUTO 0.06 K/mm3 (0.00-0.10); IMMATURE GRAN PERCENT AUTO 1 % (0-1); LYMPHOCYTES ABSOLUTE AUTO 2.25 K/mm3 (0.84-5.20); LYMPHOCYTES PERCENT AUTO 20 % (21-46); MONOCYTES ABSOLUTE AUTO 0.76 K/mm3 (0.16-1.47); MONOCYTES PERCENT AUTO 7 % (4-13); Mean Corpuscular HGB 29.5 pg (26.0-34.0); Mean Corpuscular HGB Conc 31.2 g/dL (31.5-36.5); Mean Corpuscular Volume 94 fL (80-100); Mean Platelet Volume 9.5 fL (9.1-12.4); NEUTROPHILS ABSOLUTE AUTO 7.73 K/mm3 (1.96-9.15); NEUTROPHILS PERCENT AUTO 70 % (41-73); Platelet Count 281 K/mm3 (150-400); RDW Coefficient Variation 13.8 % (11.7-14.2); RDW Standard Deviation 47.8 fL (35.1-46.3); Red Blood Cell Count 4.38 M/mm3 (4.30-5.90); White Blood Cell Count 11.02 K/mm3 (4.00-11.30)
[2019-02-06 08:13] LABS: Albumin, Blood 3.2 g/dL (3.4-5.0); Anion Gap 4 mmol/L (6-16); Blood Urea Nitrogen 37 mg/dL (8-24); Bun/Creatinine Ratio 25.9 (12.0-20.0); CO2, Blood 30 mmol/L (21-32); Calcium, Blood 8.7 mg/dL (8.5-10.1); Chloride, Blood 106 mmol/L (98-108); Creatinine, Blood 1.43 mg/dL (0.60-1.20); Glomerular Filtration Rate 50 (60-); Glucose, Blood 118 mg/dL (70-99); Phosphorus, Blood 3.7 mg/dL (2.5-4.9); Potassium, Blood 3.7 mmol/L (3.5-5.5); Sodium, Blood 140 mmol/L (136-145)
--- NOTE | 2019-02-06 16:05 | NUR ---
Spoke with bedside SHELBY Kinsey prior to Pt visit. Amelie reports Pt is refusing to eat and take his medications. Pt is resting in bed with his eyes closed upon arrival. He awakes with moderatle level gentle voice. Pt mildly agitated. Listened as Pt expresses frustration regarding being in the hospital and not careing for the food. Validated concerns and listened as Pt explains things he likes to do. 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 Pt reports he moved to the [facility] from [place] in the . Pt's agitation improves throughout the visit and appologizes for agitation. Assisted Pt with using the urinal. Pt reports feeling tired and requests for visit to end. Pt expresses appreciation of visit. Spoke with bedside SHELBY Kinsey and discussed case. Palliative Care will F/U with therapeutic visits.
--- NOTE | 2019-02-06 18:09 | NUR ---
PT. SITTING IN BED AFTER EATING 100% OF DINNER. NO COUGHING OR CHOKING NOTED. PT. REFUSED ALL PO MEDS THIS MORNING. DID LET ME GIVE ALL THE IV AND SC MEDS. HAS BEEN CALLING APPROPRIATELY FOR HELP URINATING. PT. REFUSED ALL BOWEL CARE MEDS. PT. ACCEPTED THE METFORMIN AND GLYPIZIDE THE EVENING BEFORE DINNER. ONLY WANTED TO TAKE 1 METFORMIN BUT TALKED HIM INTO TAKING BOTH OF THEM. PALLIATIVE CARE CAME TO SEE PATIENT TODAY.
--- NOTE | 2019-02-07 05:00 | NUR ---
SHIFT SUMMARY- NO ACUTE CHANGES OVERNIGHT. PT. SAT UP IN CHAIR FOR PART OF THE NIGHT, STATED BED UNCOMFORTABLE. ASSISTED BACK INTO BED WHEN GOT TIRED. PT. RESTING COMFORTABLY IN BED, NO APPARENT DISTRESS NOTED. PT. REFUSED AM LABS. REQUESTING TO HAVE THEM DRAWN AT 0700. DENIED ANY PAIN OR DISCOMFORT T/O THE SHIFT. CALL LIGHT WITHIN REACH, SIDE RAILS UPX2, AND BED IN LOW POSITION. WILL CONT TO MONITOR.
[2019-02-07 07:39] LABS: Albumin, Blood 2.9 g/dL (3.4-5.0); Anion Gap 6 mmol/L (6-16); Blood Urea Nitrogen 34 mg/dL (8-24); Bun/Creatinine Ratio 25.4 (12.0-20.0); CO2, Blood 29 mmol/L (21-32); Calcium, Blood 8.6 mg/dL (8.5-10.1); Chloride, Blood 107 mmol/L (98-108); Creatinine, Blood 1.34 mg/dL (0.60-1.20); Glomerular Filtration Rate 54 (60-); Glucose, Blood 123 mg/dL (70-99); Phosphorus, Blood 3.4 mg/dL (2.5-4.9); Potassium, Blood 3.4 mmol/L (3.5-5.5); Sodium, Blood 142 mmol/L (136-145)
--- NOTE | 2019-02-07 10:15 | NUR ---
PT. REFUSED ALL MEDS THIS MORNING, PO, IV, AND SC. THINKS THEY ARE WHATS MAKING HIM DIZZY AND UNSTEADY ON HIS FEET. EXPLAINED THAT MAYBE NOT TAKING HIS MEDICATIONS WAS CAUSING THE DIZZINESS AND UNSTEADINESS. PT. STILL REFUSED ALL AM MEDS.
--- NOTE | 2019-02-07 12:57 | NUR ---
Pt. is in bd resting he reports doing much better today encouraged pt. and offered prayers
--- NOTE | 2019-02-07 12:58 | NUR ---
Pt. is doing much better offered prayers
--- NOTE | 2019-02-07 19:10 | NUR ---
PT. UP IN CHAIR AT THIS TIME. ALLOWED ME TO GIVE HIM HIS LASIX FOR THIS MORNING, THIS EVENING ALSO THE [place]. ACCEPTED THE GLIPIZIDE AND METFORMIN. NO OTHER NOTEABLE CHANGES THIS SHIFT.
[2019-02-08 01:21] LABS: Albumin, Blood 2.9 g/dL (3.4-5.0); Anion Gap 6 mmol/L (6-16); Blood Urea Nitrogen 26 mg/dL (8-24); CO2, Blood 27 mmol/L (21-32); Calcium, Blood 8.7 mg/dL (8.5-10.1); Chloride, Blood 107 mmol/L (98-108); Creatinine, Blood 1.13 mg/dL (0.60-1.20); Glomerular Filtration Rate >60 (60-); Glucose, Blood 126 mg/dL (70-99); Phosphorus, Blood 2.3 mg/dL (2.5-4.9); Potassium, Blood 3.5 mmol/L (3.5-5.5); Sodium, Blood 140 mmol/L (136-145)
--- NOTE | 2019-02-08 06:39 | NUR ---
SHIFT SUMMARY PATIENT ALERT AND ORIENTED. HAD COMPLAINT OF CHEST PAIN OVERNIGHT WITH AN ELEVATION IN PULSE RATE. EKG CONDUCTED AND BALLAST CLEANING OPERATOR PHYSICIAN NOTIFIED WHO CAME IN TO SEE THE PATIENT. SHE ORDERD FOR THE PATIENT TO BE STARTED ON ASPIRIN AND TROPONIN LEVELS TO BE DRAWN. PATIENT'S CHEST PAIN HAS NOW SUBSIDED. IV PATENT AND FLUSHED. BED IN LOWEST POSITION WITH WHEELS LOCKED. CALL LIGHT AND BELONGINGS WITHIN REACH. REPORT GIVEN TO ONCOMING RN.
--- NOTE | 2019-02-08 11:35 | NUR ---
Pt. is sitting up in a chair and watching T.V. he is lucia carlson encouraged pt and offered prayers .
--- NOTE | 2019-02-08 18:45 | NUR ---
PT. UP IN CHAIR MOST OF THE DAY, PT. TOOK ALL HIS MEDS THIS MORNING AND THIS EVENING. WORKED WITH OT BUT REFUSED PT. APRESOLINE GIVEN 2 TIMES TODAY FOR HTN. TRAMADOL GIVEN FOR RIGHT FOOT PAIN EARLIER TODAY. POSSIBLE DISCHARGE HOME TOMMORROW.
--- NOTE | 2019-02-09 01:16 | NUR ---
PT REFUSED TO WEAR TELE. PROVIDER NOTIFIED AND DID NOT DC TELE ORDER. PT HAD NEW ONSET OF BLOODY URINE WITH INCREASED SWELLING AND PAIN IN RLE. PT HAS GOOD PEDAL PULSES. DEMETRI CALLED AND INFORMED. PROVIDERED ASSESSED PT AND ORDERED PAIN MED AND CBC LABS IN AM. PT CAP REFILL IN BOTH BLE ARE >3 SECS. WILL CONTINUE TO MONITOR AND ASSESS.
--- NOTE | 2019-02-09 04:44 | NUR ---
SHIFT SUMMARY PT HAD NEW EPISODES OF BLOOD IN URINE. PT ALSO DEVELOPED SUDDEN INCREASE IN PAIN IN RLE. PT LEG IS SWOLLEN AND HOT TO THE TOUCH. CAP REFILL IS DELAYED. PT HAS GOOOD PEDAL PULSES NOTED. DEMETRI WAS CALLED AND ASSESSED PT. WILL INFORM DAY RN OF ISSUES. PT STATES HE HAS HX OF BLOOD CLOTS IN URINE POST SX ON 01/16 FOR PVD ISSUE IN RLE. PT STATES HIS MEJIA WAS REMOVED IN CLINIC PRIOR TO THIS ADMISSION. PT STATES THAT DR VILLALTA INFORMED HIM OF NEED OF FURTHER SX IN RLE. PAIN MEDS WERE ORDERED FOR PAIN RELIEF. PT HAS RESPONDED WELL TO PAIN TX. PT ALSO HAS ISSUE WITH CONTINUED HTN DESPITE TX PER EMAR. WILL CONTINUE TO MONITOR AND TX NEEDED. PT SLEEPING AND BREATHING EASY. CALL LIGHT IN REACH.
[2019-02-09 05:05] LABS: BASOPHILS ABSOLUTE AUTO 0.03 K/mm3 (0.00-0.23); BASOPHILS PERCENT AUTO 0 % (0-2); EOSINOPHILS ABSOLUTE AUTO 0.19 K/mm3 (0.00-0.68); EOSINOPHILS PERCENT AUTO 2 % (0-6); Hemoglobin 12.5 g/dL (13.5-17.5); IMMATURE GRAN ABSOLUTE AUTO 0.07 K/mm3 (0.00-0.10); IMMATURE GRAN PERCENT AUTO 1 % (0-1); LYMPHOCYTES ABSOLUTE AUTO 1.39 K/mm3 (0.84-5.20); LYMPHOCYTES PERCENT AUTO 12 % (21-46); MONOCYTES ABSOLUTE AUTO 0.96 K/mm3 (0.16-1.47); MONOCYTES PERCENT AUTO 8 % (4-13); Mean Corpuscular HGB 29.6 pg (26.0-34.0); Mean Corpuscular HGB Conc 32.1 g/dL (31.5-36.5); Mean Corpuscular Volume 92 fL (80-100); Mean Platelet Volume 9.4 fL (9.1-12.4); NEUTROPHILS ABSOLUTE AUTO 9.23 K/mm3 (1.96-9.15); NEUTROPHILS PERCENT AUTO 78 % (41-73); Platelet Count 224 K/mm3 (150-400); RDW Coefficient Variation 13.7 % (11.7-14.2); RDW Standard Deviation 46.7 fL (35.1-46.3); Red Blood Cell Count 4.22 M/mm3 (4.30-5.90); White Blood Cell Count 11.87 K/mm3 (4.00-11.30)
[2019-02-09 05:25] LABS: Anion Gap 7 mmol/L (6-16); Blood Urea Nitrogen 27 mg/dL (8-24); Bun/Creatinine Ratio 28.2 (12.0-20.0); CO2, Blood 26 mmol/L (21-32); Calcium, Blood 9.1 mg/dL (8.5-10.1); Chloride, Blood 105 mmol/L (98-108); Creatinine, Blood 0.96 mg/dL (0.60-1.20); Glomerular Filtration Rate >60 (60-); Glucose, Blood 142 mg/dL (70-99); Potassium, Blood 3.8 mmol/L (3.5-5.5); Sodium, Blood 138 mmol/L (136-145)
--- NOTE | 2019-02-09 16:04 | NUR ---
PT IS A/OX3, SLOW TO RESPOND, NULATO, THE PT TODAY REPORTED PAIN IN HIS R LE, THE PT WAS MEDICATED FOR PAIN T/O THE DAY, THE PT WAS ENCOURAGED TO WORK WITH THE PHYSICAL THERAPIST BY THE MD, THIS RN AND THE PHYSICAL THERAPIST SEVERAL TIMES T/O THE DAY, THE PT DECLINED TO EACH TIME, THE PT APPEARS TO BE BREATHING EASILTY ON O2 AT THIS TIME @ 2L/MIN, THE PT'S LE'S HAVE BEEN ELEVATED T/O THE DAY THE PT WAS REPOSITIONED HOWEVER DID NOT GET UP FROM THE BED TODAY, PT HAS A POOR APETITE, CALL LIGHT IN REACH WILL CONTINUE TO MONITOR AND ASSESS FOR CHANGES
--- NOTE | 2019-02-10 04:51 | NUR ---
PT NON COMPLIANT WITH PLAN OF CARE THIS SHIFT. REFUSED ALL MEDS AND VOICED ANNOYANCE WITH ATTEMPTS TO REPOSITION HIM. BECAME TOO LETHARGIC TO ASSIST BACK TO BED AFTER GETTING HIM UP TO THE COMMODE TO VOID, REQUIRED THE LIFT TO DO SO. TRANSFERRED TO ANOTHER ROOM WITH A LIFT TO ASSIST HIM WITH ADLS. CALL LIGHT IN REACH.
--- NOTE | 2019-02-10 11:30 | NUR ---
Arrangements for discharge: Call from Tati Duffy, nursing vendor quality supervisor, to assist with pt's discharge arrangements. Nurse and charge nurse are concerned with discharge because pt has not been out of bed. He has been refusing PT, along with many of his medications. The concern is safety of discharge if pt is not returned to baseline function. With Tati Duffy present, calls were made to his daughter, Kylah. She lives with the pt and she is "fine" with the pt returning home. She is able and willing to care for the pt, even if he is bedbound at this time. Urinal and bedpan are being sent home so that she can better care for him. She states that she is able to picker box operator his medications today so that he will not miss doses. She is chosing [facility] services and is supportive of PT/OT and nursing to assist with medications. She agrees that it would be better if he could walk and understands that he has been refusing to work with physical therapy at home. Call placed to Dr. Marie. Messages left for social work manager and for [facility] to make arrangements for HH next week on Tuesday.
[2019-02-10] MEDS ORDERED: ACET325 PO (14:33)
[2019-02-10] MEDS ORDERED: LOSA50 PO (14:34)
[2019-02-10] MEDS ORDERED: TORSE20 PO (14:37)
--- NOTE | 2019-02-10 15:38 | NUR ---
PT HAS BEEN ALERT AND ORIENTED X 2-3 AT TIMES BUT NON-COMPLIANT WITH ASSESSMENTS AND CARE. AT TIMES WHEN ASKING HIM QUESTIONS HE SIMPLY DOES NOT RESPOND AT ALL,IGNORING THE QUESTIONS. PT REFUSED ALL MORNING MEDS. PER THERAPY HE REFUSED THE MAJORITY OF HIS PT SESSION WELL. DR DUNN IS AWARE OF REFUSALS AND GAVE ORDERS TO DC HOME WITH HIS DAUGHTER ALONG WITH A HOME HEALTH EVAL. ALL MED ORDERS AND INSTRUCTIONS WERE REVIEWED WITH THE DAUGHTER OVER THE PHONE WHO VERBALIZED AN UNDERSTANDING AND HAS NO QUESTIONS. CHARGE NURSE ARRANGED FOR PT TO BE TRANSPORTED HOME VIA [facility] AND PT WAS ASSISTED TO THE STRETCHER. IV WAS REMOVED WITH NO ISSUE. MED ORDERS WERE FAXED TO [facility] PER FAMILY REQUEST. ALL PERSONAL BELONGINGS WERE SENT WITH THE PT. PT STABLE UPON DC.
== END 2019-02-10 15:28 | disposition home or self-care (01) | DRG 291 ==
LOC: ER 03:33 → PCU 06:11 → ICUW 06:11 → PCU 09:09 → MEDS 02-05 18:07 → ENPENDDIS 02-10 11:11 → MEDS 02-10 15:28
PROVIDERS: Emergency Medicine; Family Medicine; Hospitalist; Internal Medicine; Nurse Practitioner Acute Care; ADMIT Internal Medicine
PROC: 5A09357 Assistance with Respiratory Ventilation, Less than 24 Consecutive Hours, Continuous Positive Airway Pressure (ICD-10-PCS; principal; 2019-02-03)
DX: I11.0 Hypertensive heart disease with heart failure (principal); J96.01 Acute respiratory failure with hypoxia; N17.9 Acute kidney failure, unspecified; M10.9 Gout, unspecified; I50.32 Chronic diastolic (congestive) heart failure; E87.5 Hyperkalemia; I25.10 Atherosclerotic heart disease of native coronary artery without angina pectoris; E11.51 Type 2 diabetes mellitus with diabetic peripheral angiopathy without gangrene; K76.0 Fatty (change of) liver, not elsewhere classified; Z79.84 Long term (current) use of oral hypoglycemic drugs; Z87.891 Personal history of nicotine dependence; I16.0 Hypertensive urgency; Z66 Do not resuscitate
CPT/HCPCS: 0099U; 36415; 36600; 71045; 71250; 80048; 80053; 80069; 82803; 82947; 83036; 83605; 83735; 83880; 84145; 84484; 85025; 85027; 87040; 87070; 87205; 92610; 93005; 93010; 93306; 94644; 94660; 94762; 96374; 96375; 96376; 97110; 97116; 97162; 97166; 97530; 99285-25; J0360; J1170; J1650; J1940; J1956; J2060; J2405; J2930; J3010

== ENCOUNTER 2019-05-03 07:14 | Emergency (ER) | payer MEDICARE, OTHER ==
[~2019-05-03] VITALS: Ht 170.2 cm; Wt 90.7 kg
[~2019-05-03 07:14] MED LIST changes: +ACET325 PO; -Metformin HCl1000 MG PO; +NAPR220 PO; -PIOGLITAZONE HC30 MG PO; -POTASSIUM CHLO20 ME1 PO
[2019-05-03 07:45] LABS: Source, Urine Clean Catch
[2019-05-03 07:49] LABS: Bilirubin, Urine Neg (Neg); Blood, Urine 4+ (Neg); Glucose Qualitative, Urine Neg (Neg); Ketones, Urine Neg (Neg); Leukocyte Esterase, Urine Neg (Neg); Nitrite, Urine Neg (Neg); Protein, Urine 4+ (Neg); Specific Gravity, Urine 1.015 (1.003-1.022); Urobilinogen, Urine NORM (Normal)
[2019-05-03 08:00] LABS: Appearance, Urine Bloody (Clear); Bacteria Not Seen /hpf; Color, Urine Red (P-Yellow); Red Blood Cells, Urine TNTC /hpf (0-2); Squamous Epithelial Cells Not Seen /hpf (Few); White Blood Cells, Urine Not Seen /hpf (0-5)
[2019-05-03 08:16] LABS: BASOPHILS ABSOLUTE AUTO 0.04 K/mm3 (0.00-0.23); BASOPHILS PERCENT AUTO 0 % (0-2); EOSINOPHILS ABSOLUTE AUTO 0.26 K/mm3 (0.00-0.68); EOSINOPHILS PERCENT AUTO 3 % (0-6); Hematocrit 38.5 % (37.0-53.0); IMMATURE GRAN ABSOLUTE AUTO 0.04 K/mm3 (0.00-0.10); IMMATURE GRAN PERCENT AUTO 0 % (0-1); LYMPHOCYTES ABSOLUTE AUTO 1.46 K/mm3 (0.84-5.20); LYMPHOCYTES PERCENT AUTO 14 % (21-46); MONOCYTES ABSOLUTE AUTO 0.75 K/mm3 (0.16-1.47); MONOCYTES PERCENT AUTO 7 % (4-13); Mean Corpuscular HGB 29.2 pg (26.0-34.0); Mean Corpuscular HGB Conc 31.2 g/dL (31.5-36.5); Mean Corpuscular Volume 94 fL (80-100); Mean Platelet Volume 9.2 fL (9.1-12.4); NEUTROPHILS ABSOLUTE AUTO 7.58 K/mm3 (1.96-9.15); NEUTROPHILS PERCENT AUTO 75 % (41-73); Platelet Count 224 K/mm3 (150-400); RDW Coefficient Variation 14.1 % (11.7-14.2); RDW Standard Deviation 48.5 fL (35.1-46.3); Red Blood Cell Count 4.11 M/mm3 (4.30-5.90); White Blood Cell Count 10.13 K/mm3 (4.00-11.30)
[2019-05-03 08:35] LABS: Bun/Creatinine Ratio 12.7 (12.0-20.0); Calcium, Blood 8.7 mg/dL (8.5-10.1); Creatinine, Blood 1.42 mg/dL (0.60-1.20); Potassium, Blood 3.6 mmol/L (3.5-5.5)
[2019-05-04] MEDS ORDERED: ALLO100 PO (15:25)
[2019-05-04] MEDS ORDERED: GLIP10ER PO (15:25)
[2019-05-04] MEDS ORDERED: METO100ER PO (15:26)
[2019-05-04] MEDS ORDERED: Metformin HCl1000 MG PO (15:28)
[2019-05-04] MEDS ORDERED: POTASSIUM CHLO20 ME1 PO (15:29)
[2019-05-04] MEDS ORDERED: PIOGLITAZONE HC30 MG PO (15:29)
[2019-05-04] MEDS ORDERED: LOSA50 PO (15:31)
[2019-05-04] MEDS ORDERED: TORSE20 PO (15:32)
[2019-05-04] MEDS ORDERED: GABA100 PO (15:33)
[2019-05-04] MEDS ORDERED: CEPH500 PO (16:12)
== END 2019-05-03 09:53 | disposition home or self-care (01) ==
LOC: ER 07:14
PROVIDERS: Emergency Medicine
DX: R31.9 Hematuria, unspecified (principal); D64.9 Anemia, unspecified; I11.0 Hypertensive heart disease with heart failure; I50.9 Heart failure, unspecified; E78.5 Hyperlipidemia, unspecified; E11.51 Type 2 diabetes mellitus with diabetic peripheral angiopathy without gangrene; Z88.0 Allergy status to penicillin; Z79.899 Other long term (current) drug therapy; Z79.84 Long term (current) use of oral hypoglycemic drugs
CPT/HCPCS: 51798; 80048; 81001; 85025; 87086; 99283-25

== ENCOUNTER 2019-05-04 12:23 | Inpatient (IN) | payer MEDICARE, OTHER ==
[~2019-05-04] VITALS: Ht 170.2 cm; Wt 101.1 kg
[2019-05-04 12:44] LABS: BASOPHILS ABSOLUTE AUTO 0.02 K/mm3 (0.00-0.23); BASOPHILS PERCENT AUTO 0 % (0-2); EOSINOPHILS ABSOLUTE AUTO 0.01 K/mm3 (0.00-0.68); EOSINOPHILS PERCENT AUTO 0 % (0-6); Hematocrit 35.1 % (37.0-53.0); Hemoglobin 11.3 g/dL (13.5-17.5); IMMATURE GRAN ABSOLUTE AUTO 0.06 K/mm3 (0.00-0.10); IMMATURE GRAN PERCENT AUTO 0 % (0-1); LYMPHOCYTES ABSOLUTE AUTO 1.05 K/mm3 (0.84-5.20); LYMPHOCYTES PERCENT AUTO 7 % (21-46); MONOCYTES ABSOLUTE AUTO 1.48 K/mm3 (0.16-1.47); MONOCYTES PERCENT AUTO 9 % (4-13); Mean Corpuscular HGB 29.7 pg (26.0-34.0); Mean Corpuscular HGB Conc 32.2 g/dL (31.5-36.5); Mean Corpuscular Volume 92 fL (80-100); Mean Platelet Volume 9.3 fL (9.1-12.4); NEUTROPHILS PERCENT AUTO 84 % (41-73); Platelet Count 254 K/mm3 (150-400); RDW Coefficient Variation 14.3 % (11.7-14.2); RDW Standard Deviation 48.9 fL (35.1-46.3); White Blood Cell Count 15.92 K/mm3 (4.00-11.30)
[2019-05-04 13:04] LABS: Albumin, Blood 3.3 g/dL (3.4-5.0); Albumin/Globulin Ratio 1.1 (0.8-1.8); Bilirubin, Total 0.8 mg/dL (0.1-1.0); Bun/Creatinine Ratio 9.4 (12.0-20.0); Calcium, Blood 9.4 mg/dL (8.5-10.1); Creatinine, Blood 2.98 mg/dL (0.60-1.20); Globulin, Blood 3.1 g/dL (2.2-4.0); Potassium, Blood 4.1 mmol/L (3.5-5.5); Total Protein, Blood 6.4 g/dL (6.4-8.2)
[2019-05-04] MEDS ORDERED: GLIP10ER PO (15:25)
[2019-05-04] MEDS ORDERED: ALLO100 PO (15:25)
[2019-05-04] MEDS ORDERED: METO100ER PO (15:26)
[2019-05-04] MEDS ORDERED: Metformin HCl1000 MG PO (15:28)
[2019-05-04] MEDS ORDERED: POTASSIUM CHLO20 ME1 PO (15:29)
[2019-05-04] MEDS ORDERED: PIOGLITAZONE HC30 MG PO (15:29)
[2019-05-04] MEDS ORDERED: LOSA50 PO (15:31)
[2019-05-04] MEDS ORDERED: TORSE20 PO (15:32)
[2019-05-04] MEDS ORDERED: GABA100 PO (15:33)
[2019-05-04 15:44] LABS: Bilirubin, Urine Neg (Neg); Blood, Urine 5+ (Neg); Glucose Qualitative, Urine Neg (Neg); Ketones, Urine 1+ (Neg); Leukocyte Esterase, Urine Neg (Neg); Nitrite, Urine Neg (Neg); Protein, Urine 4+ (Neg); Urobilinogen, Urine NORM (Normal)
[2019-05-04] MEDS ORDERED: CEPH500 PO (16:12)
[2019-05-04 16:21] LABS: Appearance, Urine Bloody (Clear); Color, Urine Red (P-Yellow)
[2019-05-04 16:22] LABS: Red Blood Cells, Urine TNTC /hpf (0-2); White Blood Cells, Urine TNTC /hpf (0-5)
[2019-05-04 16:23] LABS: Bacteria Many /hpf; Squamous Epithelial Cells Few /hpf (Few)
[2019-05-04 17:18] LABS: Hematocrit 34.8 % (37.0-53.0)
--- NOTE | 2019-05-04 18:55 | NUR ---
ADMIT/SHIFT SUMMARY- PT ADMISSION ASSESSMENT COMPLETED, PT STATED HE HAS NO Hx OF CANCER, PT SAID HIS PROSTATE WAS REMOVED STATED IT WASNT FOR CANCER. PT ADMITTED FOR CANCER WITH METS TO [facility]. ONCOLOGY CONSULT CALLED TO ANSWERING SERVICE FOR DR WELDON. PT HAS A MEJIA IN PLACE DRAINING SHILO RED BLOOD. PER REPORT FROM ED PT HAD 1300ML OUT AFTER MEJIA WAS PLACED AND FLUSHED. WILL PASS ON TO NIGHT RN IN BEDSIDE REPORT.
--- NOTE | 2019-05-04 19:48 | NUR ---
villalba catheter emptied at 1930 with 700ml of what appeared to be carmen blood and no or perhaps minimal urine. No clots noted. Call placed to hospitalist to inform.
[2019-05-04 22:23] LABS: Hematocrit 31.5 % (37.0-53.0)
--- NOTE | 2019-05-04 23:55 | NUR ---
IRRIGATED PATIENTS MEJIA CATHETER GENTLY WITH 120 ML STERILE SALINE. WAS ABLE TO REMOVE THE SAME AMOUNT OF DARK BLOOD ONLY SLIGHTLY DILUTED WITH SALINE. NO CLOTS NOTED. PATIENT TOLERATED PROCEDURE WELL. HEMOGLOBIN RETURNED AT 10 FROM 2200 DRAW. THIS LAB IS SCHEDULED TO BE REDRAWN AT 0400.
--- NOTE | 2019-05-05 03:08 | NUR ---
240 ml normal saline flushed into villalba catheter without difficulty. dark red fluid return without clots or sediment. Fluid does seem slightly less viscous than earlier in evening.
[2019-05-05 04:54] LABS: BASOPHILS ABSOLUTE AUTO 0.03 K/mm3 (0.00-0.23); BASOPHILS PERCENT AUTO 0 % (0-2); EOSINOPHILS ABSOLUTE AUTO 0.17 K/mm3 (0.00-0.68); EOSINOPHILS PERCENT AUTO 2 % (0-6); Hematocrit 30.8 % (37.0-53.0); Hemoglobin 9.6 g/dL (13.5-17.5); IMMATURE GRAN ABSOLUTE AUTO 0.03 K/mm3 (0.00-0.10); IMMATURE GRAN PERCENT AUTO 0 % (0-1); LYMPHOCYTES ABSOLUTE AUTO 1.32 K/mm3 (0.84-5.20); LYMPHOCYTES PERCENT AUTO 13 % (21-46); MONOCYTES ABSOLUTE AUTO 1.01 K/mm3 (0.16-1.47); MONOCYTES PERCENT AUTO 10 % (4-13); Mean Corpuscular HGB 29.2 pg (26.0-34.0); Mean Corpuscular HGB Conc 31.2 g/dL (31.5-36.5); Mean Corpuscular Volume 94 fL (80-100); Mean Platelet Volume 9.3 fL (9.1-12.4); NEUTROPHILS ABSOLUTE AUTO 7.47 K/mm3 (1.96-9.15); NEUTROPHILS PERCENT AUTO 74 % (41-73); Platelet Count 196 K/mm3 (150-400); RDW Coefficient Variation 14.1 % (11.7-14.2); RDW Standard Deviation 48.9 fL (35.1-46.3); Red Blood Cell Count 3.29 M/mm3 (4.30-5.90); White Blood Cell Count 10.03 K/mm3 (4.00-11.30)
[2019-05-05 05:11] LABS: Bun/Creatinine Ratio 12.8 (12.0-20.0); Calcium, Blood 8.6 mg/dL (8.5-10.1); Creatinine, Blood 2.43 mg/dL (0.60-1.20); Potassium, Blood 4.1 mmol/L (3.5-5.5)
[2019-05-05 06:35] LABS: Source, Urine Catheter
[2019-05-05 06:54] LABS: Bilirubin, Urine Neg (Neg); Blood, Urine 4+ (Neg); Glucose Qualitative, Urine Neg (Neg); Ketones, Urine Neg (Neg); Nitrite, Urine Neg (Neg); Protein, Urine 4+ (Neg); Specific Gravity, Urine 1.015 (1.003-1.022); Urobilinogen, Urine NORM (Normal)
[2019-05-05 06:55] LABS: Appearance, Urine Bloody (Clear); Color, Urine Red (P-Yellow)
[2019-05-05 07:00] LABS: Bacteria Mod /hpf; Leukocyte Esterase, Urine Neg (Neg); Red Blood Cells, Urine TNTC /hpf (0-2); Squamous Epithelial Cells Not Seen /hpf (Few); White Blood Cells, Urine TNTC /hpf (0-5)
--- NOTE | 2019-05-05 07:19 | NUR ---
[employer] SUMMARY Patient bled frankly into villalba catheter all night. 2350ml carmen blood looking urine overnight in addition to 1300ml immediate bloodlike return when cath inserted in ER. Hemoglobin overnight has dropped from 11.0 to 10.0 to 9.6 this morning. No complaints of pain in bladder or elsewhere. Patient appeared anxious and frightened and found comfort in staff being supportive and explaining things to him in a manner that made sense to him.
--- NOTE | 2019-05-05 08:30 | NUR ---
PT MOSTLY PLEASANT, SOMETIMES BELIGERENT AND DEMANDING. "WHAT IS THAT ON MY FEET" ANSWER IT IS YOUR BLANKET. "GET IT OFF NOW". 10 MINUTES LATER DURING ASSESSMENT, "MY FEET ARE COLD, GET ME A BLANKET". A/O X3 DENIES PAIN. PT PRESENTS QUITE PALE. MEJIA CATH BAG DRAINING DARK RED BLOODY FLUID. H/R REG, NO MURMER NOTED. NO TELE. LUNGS ARE DIM T/O. RESP EASY, UNLABORED. ON 2L O2. BT X4, LAST BM YEST PER PT. VOIDS MEJIA CATH. 2 MAX ASST DUE TO WEAKNESS. BED ALARM ON FOR SAFETY, BED IN LOW POSITION, CALL LITE IN REACH, USUALLY JUST YELLS FOR ASSISTANCE.
--- NOTE | 2019-05-05 09:00 | NUR ---
DR RIOS CANCER DR IN TO SEE PT. 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 THIS WHY BLEEDING. CONSIDERING TX TO [facility] TO STOP BLEEDING.
[2019-05-05 10:49] LABS: Hematocrit 31.4 % (37.0-53.0); Hemoglobin 9.9 g/dL (13.5-17.5)
--- NOTE | 2019-05-05 14:26 | NUR ---
PT NEW VITALS PRIOR TO TRANFER TO [facility]. CALLED DR MIHCAUD BP. ORDERS FOR ONE TIME CLONIDINE . OKAYED OVER-RIDE FOR BETA MONET.
--- NOTE | 2019-05-05 14:45 | NUR ---
called report to joelle arthur at [facility]. expected transport at [phone]
--- NOTE | 2019-05-05 14:56 | NUR ---
out door on transport at [phone]
--- NOTE | 2019-05-05 15:12 | NUR ---
dates were changed on transfer summart notes to 05/05/19 liz arthur
== END 2019-05-05 14:55 | disposition short-term general hospital (02) | DRG 683 ==
LOC: ER 12:23 → MEDS 16:25 → ENPENDDIS 05-05 14:49 → MEDS 05-05 14:55
PROVIDERS: Physician Assistant; ADMIT Family Medicine
DX: N17.9 Acute kidney failure, unspecified (principal); I13.0 Hypertensive heart and chronic kidney disease with heart failure and stage 1 through stage 4 chronic kidney disease, or unspecified chronic kidney disease; C79.51 Secondary malignant neoplasm of bone; N13.6 Pyonephrosis; E11.22 Type 2 diabetes mellitus with diabetic chronic kidney disease; N18.3 Chronic kidney disease, stage 3 (moderate); I50.9 Heart failure, unspecified; R33.8 Other retention of urine; D64.9 Anemia, unspecified; E78.5 Hyperlipidemia, unspecified; C61 Malignant neoplasm of prostate; R31.0 Gross hematuria; N40.1 Benign prostatic hyperplasia with lower urinary tract symptoms; C67.9 Malignant neoplasm of bladder, unspecified; I25.10 Atherosclerotic heart disease of native coronary artery without angina pectoris; Z87.891 Personal history of nicotine dependence; Z66 Do not resuscitate
CPT/HCPCS: 36415; 51702; 74176; 80048; 80053; 81001; 82947; 83690; 84153; 85014; 85018; 85025; 87086; 96360-59; 99285-25; J0696; J1815; J1940; J2185; J7030